=== PATIENT | male | born 2000 | race Hispanic/Latino ===

== ENCOUNTER 2020-09-26 15:09 | Emergency (ER) | payer OTHER, MEDICAID, SELFPAY ==
[2020-09-26 15:43] VITALS: BP 161/91; PULSE 74; RESP 16; TEMP 37.2; O2SAT 100; BMI 21.6
[2020-09-26 16:49] LABS: Add Manual Diff / Slide Review NO; Basophils Absolute Auto 100 /uL (0-100); Basophils Percent Auto 0.8 % (0-2); Eosinophils Absolute Auto 300 /uL (0-450); Hematocrit 49.4 % (41-53); Hemoglobin 16.1 g/dL (13.5-17.5); Lymphocytes Absolute Auto 1900 /uL (1100-4500); Lymphocytes Percent Auto 26.2 % (25-40); Mean Corpuscular HGB Conc 32.7 % (30-36); Mean Corpuscular Hemoglobin 26.6 PG (26-34); Mean Corpuscular Volume 81.4 fL (80-100); Monocytes Absolute Auto 400 /uL (0-900); Monocytes Percent Auto 5.7 % (3-14); Neutrophils Absolute Auto 4500 /uL (1500-7000); Neutrophils Percent Auto 63.3 % (50-75); Platelet Count 253 X10^3/uL (150-400); Red Blood Cell Count 6.07 X10^6/uL (4.5-5.9); Red Cell Distribution Width 14.3 % (11.6-14.8); White Blood Cell Count 7.2 X10^3/uL (4.5-11.0)
[2020-09-26 16:53] LABS: Prothrombin Time 12.1 SECONDS (10.1-12.7)
[2020-09-26 16:56] LABS: PTT Partial Thromboplastin Tim 30 SECONDS (26.4-36.2)
[2020-09-26 16:58] LABS: Alanine Aminotransferase 22 IU/L (<50); Albumin 4.9 g/dL (3.5-5.0); Albumin Globulin Ratio 1.3 (1.0-2.8); Alkaline Phosphatase 96 U/L (38-126); Aspartate Aminotransferase 30 IU/L (17-59); BUN Creatinine Ratio 17.6 (6-22); Bilirubin Total 0.4 mg/dL (0.2-1.3); Blood Urea Nitrogen 16 mg/dL (9-20); Calcium 9.5 mg/dL (8.4-10.2); Carbon Dioxide 27 mmol/L (22-32); Chloride 106 mmol/L (98-107); Estimated Glomerular Filt Rate > 60.0 mL/min (>60); Globulin 3.8 g/dL (1.7-4.1); Glucose 89 mg/dL (70-100); HEMOLYSIS < 15 (0-50); Lipase 107 U/L (23-300); Potassium 4.3 mmol/L (3.4-5.1); Sodium 140 mmol/L (137-145); Total Protein 8.7 g/dL (6.3-8.2)
--- NOTE | 2020-09-26 20:24 | ED_ITS ---
HPI - Abdominal Pain General Chief Complaint: Abdominal Pain Stated Complaint: stomach pains Time Seen by Provider: 09/26/20 20:24 Source: patient and family Mode of arrival: Ambulatory Limitations: no limitations History of Present Illness HPI narrative: The patient has right lower quadrant pain, he has had pain for 1 week. Pain is increased tonight. He has no fever. His appetite is normal. There is some increase of pain with motion, no pain with straight leg raise now. He has had no nausea, vomiting or diarrhea. Has no genital pain. He denies dysuria. The pain does radiate to his right back. He has had no recent injuries. Related Data Home Medications Medication Instructions Recorded Confirmed No Known Home Medications 09/26/20 09/26/20 Allergies Allergy/AdvReac Type Severity Reaction Status Date / Time No Known Drug Allergies Allergy Verified 09/26/20 15:48 Review of Systems Review of Systems ROS Unobtainable: All systems reviewed & are unremarkable except as noted in HPI and below Constitutional Constitutional: Denies chills, Denies fever(s), Denies headache(s), Denies lethargy and Denies weakness ENT Ears, Nose, Mouth, and Throat: Denies dizziness, Denies headache(s) and Denies sore throat Cardiovascular Cardiovascular: Denies chest pain, Denies chest pain with activity, Denies rapid heart rate and Denies dyspnea Respiratory Respiratory: Denies cough, Denies dyspnea and Denies wheezing Gastrointestinal Gastrointestinal: Reports as per HPI Genitourinary Comments: No genital pain. No dysuria. Musculoskeletal Musculoskeletal: Denies arthralgias and Denies back pain Integumentary/Breasts Skin/Breast: Denies rash and Denies wounds Neurologic Neurologic: Denies dizziness, Denies headache(s) and Denies weakness Allergic/Immunologic Allergic/Immunologic: Denies wheezing Patient History Medical History (Updated 09/27/20 @ 00:26 by Jung Johnson MD) Healthy adult (Acute) Surgical History (Updated 09/27/20 @ 00:23 by Jung Johnson MD) No significant past surgical history (Acute) Social History Smoking Status: Never smoker Smoking Status: Never smoker alcohol intake frequency: holidays/special occasions only Substance Use Type: does not use Exam Initial Vital Signs Initial Vital Signs: Vital Signs Temperature 99 F 09/26/20 15:43 Pulse Rate 74 09/26/20 15:43 Respiratory Rate 16 09/26/20 15:43 Blood Pressure 161/91 H 09/26/20 15:43 Pulse Oximetry 100 09/26/20 15:43 Const General: cooperative and well developed Nutritional Appearance: well nourished [facility] Head: normocephalic and atraumatic Throat: posterior oropharynx normal Chest Chest: normal inspection of the chest Resp Effort & Inspection: normal respiratory effort and able to speak in complete sentences Auscultation: clear to auscultation bilaterally Cardio Rate: regular rate Rhythm: regular rhythm Heart Sounds: S1 normal, S2 normal, no click, no gallops, no murmurs and no rubs Pulses: normal peripheral pulses GI Other: Right lower quadrant tenderness with guarding but no rebound. Normal bowel sounds. No distension. No masses. Negative heel tap. Skin General: no rashes or lesions noted, No jaundice and No petechiae Neuro General: patient alert, patient oriented x3, gait normal and no focal motor deficits Speech: speech normal Course Course Course Narrative: The patient's pain is resolved after Toradol. There is no CT evidence of appendicitis, the CT is normal Orders Ordered: ED Orders 09/26/20 16:30 Complete Blood Count AUTO DIFF Stat Comprehensive Metabolic Panel Stat Lipase Stat Partial Thromboplastin Time Stat Prothrombin Time INR Stat 09/26/20 21:02 CT abdomen pelvis w con Stat Discontinued Medications Sodium Chloride (Normal Saline 0.9%) 1,000 mls @ 1,000 mls/hr IV BOLUS ONE Stop: 09/26/20 22:01 Last Infusion: 09/26/20 22:57 Dose: 0 mls/hr Documented by: Admin: 09/26/20 21:22 Dose: 1,000 mls/hr Documented by: LAVERNE Ketorolac Tromethamine (Toradol) 30 mg IV NOW ONE Stop: 09/26/20 21:03 Last Admin: 09/26/20 21:22 Dose: 30 mg Documented by: LAVERNE Vital Signs Vital signs: Vital Signs - 8 hr 09/26/20 22:49 09/26/20 22:50 09/27/20 00:08 Pulse Rate 58 L 55 L 58 L Respiratory Rate Blood Pressure 122/66 Pulse Oximetry 100 100 100 09/27/20 00:09 Pulse Rate 59 L Respiratory Rate 16 Blood Pressure 118/79 Pulse Oximetry 100 MDM - Abdominal Pain Lab Data Result diagrams: 09/26/20 16:30 09/26/20 16:30 Labs: Lab Results 09/26/20 09/26/20 09/26/20 Range/Units 16:30 16:30 16:30 WBC 7.2 (4.5-11.0) X10^3/uL RBC 6.07 H (4.5-5.9) X10^6/uL Hgb 16.1 (13.5-17.5) g/dL Hct 49.4 (41-53) % MCV 81.4 (80-100) fL MCH 26.6 (26-34) PG MCHC 32.7 (30-36) % RDW 14.3 (11.6-14.8) % Plt Count 253 (150-400) X10^3/uL Neut % (Auto) 63.3 (50-75) % Lymph % (Auto) 26.2 (25-40) % [place] % (Auto) 5.7 (3-14) % Eos % (Auto) 4.0 (2-4) % Baso % (Auto) 0.8 (0-2) % Neut # (Auto) 4500 (2055-2232) /uL Lymph # (Auto) 1900 (1790-0272) /uL [place] # (Auto) 400 (0-900) /uL Eos # (Auto) 300 (0-450) /uL Baso # (Auto) 100 (0-100) /uL PT 12.1 (10.1-12.7) SECONDS INR 1.0 (0.9-1.3) APTT 30 (26.4-36.2) SECONDS Sodium 140 (137-145) mmol/L Potassium 4.3 (3.4-5.1) mmol/L Chloride 106 (98-107) mmol/L Carbon Dioxide 27 (22-32) mmol/L BUN 16 (9-20) mg/dL Creatinine 0.91 (0.66-1.25) mg/dL Estimated GFR > 60.0 (>60) mL/min BUN/Creatinine Ratio 17.6 (6-22) Glucose 89 (70-100) mg/dL Calcium 9.5 (8.4-10.2) mg/dL Total Bilirubin 0.4 (0.2-1.3) mg/dL AST 30 (17-59) IU/L ALT 22 (<50) IU/L Alkaline Phosphatase 96 (38-126) U/L Total Protein 8.7 H (6.3-8.2) g/dL Albumin 4.9 (3.5-5.0) g/dL Globulin 3.8 (1.7-4.1) g/dL Albumin/Globulin Ratio 1.3 (1.0-2.8) Lipase 107 (23-300) U/L Point of care testing: Urine Dip Bedside Urine Glucose Negative Bedside Urine Bilirubin - Negative Bedside Urine Ketone - Negative Urine Specific [place] 1.015 Bedside Urine Occult Blood - Negative Bedside Urine pH 8.0 Bedside Urine Protein - Negative Bedside Urine Urobilinogen - Negative Bedside Urine Nitrite - Negative Bedside Urine Leukocytes - Negative Esterase Imaging Data CT scan - abdomen/pelvis: Radiologist's Impression: [place] [address] CT Scan Report Signed Patient: Sukumar Sevilla [facility]#: [id number] : 2000Acct:[id number] Age/Sex: te of Service: 09/26/20 Loc: ED Accession Number: [id number] Procedure: CT abdomen pelvis w con Ordering Provider: Jung Johnson MD PROCEDURE: CT ABDOMEN PELVIS W CON INDICATIONS: RLQ pain TECHNIQUE: After the administration of intravenous contrast, 5 mm thick sections acquired from the diaphragm to the symphysis. 5 mm coronal and sagittal reformats were acquired. For radiation dose reduction, the following was used: automated exposure control, adjustment of mA and/or kV according to patient size. COMPARISON: None. FINDINGS: Image quality: Excellent. ABDOMEN: Lung bases: Lung bases are clear. Heart size is normal. Solid organs: Liver is normal in size and enhancement. Gallbladder is unremarkable . Biliary system is non dilated. Pancreas enhances normally. Spleen is normal in size and enhancement. No adrenal nodules. Kidneys demonstrate normal size and enhancement, without hydronephrosis. Peritoneum and bowel: Bowel loops demonstrate normal wall thickness and caliber. The appendix is thin walled and gas filled. No free fluid or air. Nodes and vessels: No retroperitoneal or mesenteric adenopathy by size criteria. Aorta and inferior vena cava are normal in size. Miscellaneous: No ventral hernias. PELVIS: Genitourinary: Bladder wall thickness is normal. Miscellaneous: No inguinal hernias or adenopathy. Bones: No suspicious bony lesions. No vertebral body compression fractures. IMPRESSION: 1. No acute intra-abdominal findings. Normal appendix. Dictated by: Claudine Nick M.D. on 09/26/2020 at 21:50 Approved by: Claudine Nick M.D. on 09/26/2020 at 21:52 Discharge Plan Departure Patient Disposition: Home Clinical Impression: Abdominal pain, acute, right lower quadrant Instructions: DI for Abdominal Pain-Adult Activity Restrictions/Additional Instructions: Advil 2 tablets every 6 hours as needed for pain. Drink plenty of fluids, stay well hydrated. I think the pain is from a muscle strain. If you have increasing pain or fever return to the ER. Prescriptions: No Action No Known Home Medications RF: 0
--- NOTE | 2020-09-26 21:02 | DI.CT.S_ITS ---
PROCEDURE: CT ABDOMEN PELVIS W CON INDICATIONS: RLQ pain TECHNIQUE: After the administration of intravenous contrast, 5 mm thick sections acquired from the diaphragm to the symphysis. 5 mm coronal and sagittal reformats were acquired. For radiation dose reduction, the following was used: automated exposure control, adjustment of mA and/or kV according to patient size. COMPARISON: None. FINDINGS: Image quality: Excellent. ABDOMEN: Lung bases: Lung bases are clear. Heart size is normal. Solid organs: Liver is normal in size and enhancement. Gallbladder is unremarkable . Biliary system is non dilated. Pancreas enhances normally. Spleen is normal in size and enhancement. No adrenal nodules. Kidneys demonstrate normal size and enhancement, without hydronephrosis. Peritoneum and bowel: Bowel loops demonstrate normal wall thickness and caliber. The appendix is thin walled and gas filled. No free fluid or air. Nodes and vessels: No retroperitoneal or mesenteric adenopathy by size criteria. Aorta and inferior vena cava are normal in size. Miscellaneous: No ventral hernias. PELVIS: Genitourinary: Bladder wall thickness is normal. Miscellaneous: No inguinal hernias or adenopathy. Bones: No suspicious bony lesions. No vertebral body compression fractures. IMPRESSION: 1. No acute intra-abdominal findings. Normal appendix. Dictated by: Claudine Nick M.D. on 09/26/2020 at 21:50 Approved by: Claudine Nick M.D. on 09/26/2020 at 21:52
[2020-09-26] MEDS: SODIUM CHLORIDE 0.9% 1,000 ML 1000 ML IV (21:22)
[2020-09-26] MEDS: KETOROLAC 60 MG/2 ML VIAL 30 MG IV (21:22)
[2020-09-26 22:49] VITALS: PULSE 58; O2SAT 100
[2020-09-26 22:50] VITALS: BP 122/66; PULSE 55; O2SAT 100
[2020-09-27 00:08] VITALS: PULSE 58; O2SAT 100
[2020-09-27 00:09] VITALS: BP 118/79; PULSE 59; RESP 16; O2SAT 100
== END 2020-09-27 00:30 | disposition home or self-care (01) ==
PROVIDERS: Emergency Medicine; Emergency Provider Emergency Medicine
DX: R10.31 Right lower quadrant pain (principal)
CPT/HCPCS: 36415; 74177; 80053; 81003; 83690; 85025; 85610; 85730; 96361; 96374; 99284; J1885; Q9967

== ENCOUNTER → 2021-02-20 10:26 | Outpatient (CLI) | payer OTHER, MEDICAID, SELFPAY ==
[2021-02-20] MEDS: COVID-19 VACC #1, MRNA(MOD) 100 MCG/0.5 ML VIAL IM (10:35)
== END ==
PROVIDERS: Visit Provider Internal Medicine
DX: Z23 Encounter for immunization (principal)
CPT/HCPCS: 0011A; 91301

== ENCOUNTER → 2021-03-20 11:09 | Outpatient (CLI) | payer OTHER, MEDICAID, SELFPAY ==
[2021-03-20] MEDS: COVID-19 VACC #2, MRNA(MOD) 100 MCG/0.5 ML VIAL IM (11:16)
== END ==
PROVIDERS: Visit Provider Internal Medicine
DX: Z23 Encounter for immunization (principal)
CPT/HCPCS: 0012A; 91301

== ENCOUNTER 2021-12-24 01:01 | Observation (INO) | payer OTHER, MEDICAID, SELFPAY ==
[2021-12-24] VITALS (14 sets, daily range): BP systolic 100–168; BP diastolic 49–95; PULSE 75–98; RESP 10–18; TEMP 36.4–38; O2SAT 96–100; BMI 23.3
--- NOTE | 2021-12-24 | PATH_ITS ---
[facility] Accession Number: [id number] . 01 Material submitted: . appendix - APPENDIX . 02 Diagnosis: Appendix, Appendectomy: Acute suppurative appendicitis with serositis. Negative for dysplasia and malignancy. V 12/27/2021 1200 Local . 02 Electronically signed: . Lotus Quiroga MD, Pathologist NPI- [id number] . 01 Gross description: . Received in formalin, labeled with the patient's name and appendix is a 9.4 cm in length by 1.4 cm in diameter intact appendix, suture at resection margin, margin inked blue. The appendix is covered with purple-dwyer serosa with distal pale dwyer patchy exudate. Sectioning reveals diffusely hemorrhagic red-brown mucosa, no fecalith present, intact tip. [employer] sections submitted. . Summary of Sections: A1. Appendix resection margin, cross sections, and half of bisected tip, 4 pieces. ([id number]) /MRV 12/25/2021 1121 Local . 02 Pathologist provided ICD-10: K35.80 . 02 CPT . 652973 Performed at: 01 [facility] [address], [place], [place] [id number] MD Sina Haines MD Phone: [phone] Performed at: 02 [facility] [address] [place], [place] [id number] MD Lotus Quiroga MD Phone: [phone]
[2021-12-24 02:59] LABS: COVID19 -Nasal RAPID Negative (Negative)
--- NOTE | 2021-12-24 04:04 | ED.ABDPAIN ---
HPI - Abdominal Pain General Chief Complaint: Abdominal Pain Stated Complaint: right side pain/cant go to bathroom x1 day Time Seen by Provider: 12/24/21 01:07 Source: patient Mode of arrival: Ambulatory History of Present Illness HPI narrative: 21-year-old male nonsmoker with a noncontributory medical history presents with family in the chief complaint of about 36 hours of gradually worsening right lower quadrant pain. It started off as a generalized abdominal discomfort and is now settled into his right lower quadrant. He has a poor appetite and nausea, vomiting and difficulty with bowel movements. His pain is worse when he moves and improves with rest. He denies any fever but has had chills. He has been NPO since 8:00 p.m. last night. He denies any bad food, exposure to other ill persons or recent antibiotics. Related Data Previous Rx's Medication Instructions Recorded hydrocodone 5 mg-acetaminophen 325 1 tab PO TID PRN #10 tab 12/24/21 mg tablet Allergies Allergy/AdvReac Type Severity Reaction Status Date / Time No Known Drug Allergies Allergy Verified 09/26/20 15:48 Review of Systems Review of Systems Narrative: GENERAL: See HPI HEENT: Denies sinus pain, ear pain, sore throat, difficulty swallowing, dizziness. RESPIRATORY: Denies dyspnea, cough, wheezing, hemoptysis, sputum. CARDIOVASCULAR: Denies chest pain, palpitations, orthopnea, edema, GASTROINTESTINAL: See HPI : Denies dysuria, frequency, incontinence, hematuria, urinary retention. MUSCULOSKELETAL: denies weakness, joint pain, or bony pain SKIN: Denies rash, skin lesions, or other NEUROLOGIC: Denies weakness, headache, numbness, change in speech, confusion, seizures, incoordination. PSYCHIATRIC: No concerning psychosocial issues. 12 point review of systems is negative except for those stated above Patient History Medical History Healthy adult Surgical History No significant past surgical history Social History household members: family Smoking Status: Never smoker Smoking Status: Never smoker alcohol intake frequency: holidays/special occasions only Substance Use Type: does not use Exam Narrative Exam Narrative: GENERAL: [21 year old patient appears stated age. Well-developed patient, in mild distress. HEAD: Atraumatic. Normocephalic. EYES: Pupils equal round and reactive. Extraocular motions intact. No scleral icterus. No injection or drainage. ENT: Nose without bleeding, purulent drainage. Throat without erythema, tonsillar hypertrophy or exudate. Airway patent. NECK: Trachea midline. Non tender CARDIOVASCULAR: Regular rate and rhythm without murmurs, gallops, or rubs. RESPIRATORY: Clear to auscultation. Breath sounds equal bilaterally. No wheezes, rales, or rhonchi. GASTROINTESTINAL: Abdomen soft, tender in the right lower quadrant with localized peritonitis nondistended. EXTREMITIES: No edema or joint tenderness. BACK: Nontender without deformity or crepitance. No flank tenderness. NEURO: AOx3. SKIN: No rash or erythema of visible areas Initial Vital Signs Initial Vital Signs: Vital Signs Temperature 98 F 12/24/21 01:18 Pulse Rate 81 12/24/21 01:18 Respiratory Rate 15 12/24/21 01:18 Blood Pressure 168/93 H 12/24/21 01:18 Pulse Oximetry 100 12/24/21 01:18 Course Orders Ordered: Acetaminophen (Acetaminophen 325 Mg Tablet) 650 mg PO Q6HR PRN PRN Reason: Fever/Mild Pain (1-3) Hydrocodone Bitart/Acetaminophen (Hydrocodone/Acet 5/325 Tablet) 1 tab PO Q4HR PRN PRN Reason: Pain, Moderate (4-6) Hydromorphone HCl (Hydromorphone 0.5 Mg Inj) 0.5 mg IV Q6H PRN PRN Reason: Pain, Moderate (4-6) Lactated Ringer's (Lactated Ringers) 1,000 mls @ 42 mls/hr IV NOW ONE Stop: 12/25/21 10:14 Last Infusion: 12/24/21 12:01 Dose: 0 mls/hr Documented by: Admin: 12/24/21 10:27 Dose: 42 mls/hr Documented by: KRISTINA Ibuprofen (Ibuprofen 600 Mg Tablet) 600 mg PO Q6HR PRN PRN Reason: Fever/Mild Pain (1-3) Naloxone HCl (Naloxone 0.4 Mg/Ml Vial) 0.2 mg IV Q2MIN PRN PRN Reason: Opiate Reversal Ondansetron HCl (Ondansetron 4 Mg/2 Ml Inj) 4 mg IV Q8HR PRN PRN Reason: Nausea And Vomiting Discontinued Medications Acetaminophen (Acetaminophen 325 Mg Tablet) 650 mg PO PACUNOW PRN PRN Reason: Pain, Mild (1-3) Last Admin: 12/24/21 12:05 Dose: 650 mg Documented by: PRATIMA Bupivacaine HCl 30 ml/ (Epinephrine HCl 0.15 mg) 0 ml INJ NOW ONE Stop: 12/24/21 11:28 Last Admin: 12/24/21 11:27 Dose: 12.5 ml Documented by: FELIX Fentanyl (Fentanyl 100 Mcg/2 Ml Inj) 0 mcg IV Q5M PRN PRN Reason: Pain, Moderate (4-6) Hydromorphone HCl (Hydromorphone 0.5 Mg Inj) 0.5 mg IV NOW ONE Stop: 12/24/21 04:21 Last Admin: 12/24/21 05:03 Dose: 0.5 mg Documented by: ISHA Hydromorphone HCl (Hydromorphone 0.5 Mg Inj) 0.5 mg IV NOW ONE Stop: 12/24/21 05:44 Last Admin: 12/24/21 05:49 Dose: 0.5 mg Documented by: MANE Hydromorphone HCl (Hydromorphone 1 Mg Inj) 1 mg IV Q1H PRN PRN Reason: Pain, Severe (7-10) Sodium Chloride (Normal Saline 0.9%) 1,000 mls @ 1,000 mls/hr IV BOLUS ONE Stop: 12/24/21 05:19 Last Admin: 12/24/21 05:03 Dose: 1,000 mls/hr Documented by: ISHA Piperacillin Sod/Tazobactam (Sod 4.5 gm/ Sodium Chloride) 100 mls @ 200 mls/hr IV NOW ONE Stop: 12/24/21 05:10 Last Admin: 12/24/21 05:37 Dose: 200 mls/hr Documented by: MANE Piperacillin Sod/Tazobactam (Sod 4.5 gm/ Sodium Chloride) 100 mls @ 200 mls/hr IV NOW ONE Stop: 12/24/21 10:27 Last Admin: 12/24/21 12:39 Dose: Not Given Documented by: DEVIN Piperacillin Sod/Tazobactam (Sod 3.375 gm/ Sodium Chloride) 100 mls @ 25 mls/hr IV NOW ONE Stop: 12/24/21 11:26 Last Admin: 12/24/21 11:00 Dose: 25 mls/hr Documented by: RIANNA Influenza Virus Vaccine (Influenza Vaccine Qiv 0.5 Ml Syringe) 0.5 ml IM .ONCE ONE Stop: 12/25/21 09:01 Lidocaine HCl (Lidocaine 1% 20 Ml) 20 ml INJ NOW ONE Stop: 12/24/21 11:28 Last Admin: 12/24/21 11:27 Dose: 12.5 ml Documented by: FELIX Ondansetron HCl (Ondansetron 4 Mg/2 Ml Inj) 4 mg IV NOW ONE Stop: 12/24/21 04:21 Last Admin: 12/24/21 05:03 Dose: 4 mg Documented by: ISHA Ondansetron HCl (Ondansetron 4 Mg/2 Ml Inj) 4 mg IV NOW PRN PRN Reason: Nausea And Vomiting Oxycodone HCl (Oxycodone Ir 5 Mg Tablet) 5 mg PO PACUNOW PRN PRN Reason: Mild or moderate pain Last Admin: 12/24/21 12:05 Dose: 5 mg Documented by: PRATIMA Consultations Consultation #1: Discussed with on-call General surgery whom agree with admission. Vital Signs Vital signs: Vital Signs - 8 hr 12/24/21 01:18 12/24/21 04:31 12/24/21 04:39 Temperature 98 F 100.2 F H Pulse Rate 81 94 H Respiratory Rate 15 Blood Pressure 168/93 H 128/65 Pulse Oximetry 100 100 MDM - Abdominal Pain Lab Data Result diagrams: 12/24/21 04:30 12/24/21 04:30 Labs: Lab Results 12/24/21 12/24/21 12/24/21 Range/Units 01:25 04:30 04:30 WBC 15.3 H (4.5-11.0) X10^3/uL RBC 5.77 (4.5-5.9) X10^6/uL Hgb 15.4 (13.5-17.5) g/dL Hct 46.0 (41-53) % MCV 79.8 L (80-100) fL MCH 26.6 (26-34) PG MCHC 33.4 (30-36) % RDW 14.4 (11.6-14.8) % Plt Count 259 (150-400) X10^3/uL Neut % (Auto) 90.7 H (50-75) % Lymph % (Auto) 4.1 L (25-40) % [place] % (Auto) 4.9 (3-14) % Eos % (Auto) 0.2 L (2-4) % Baso % (Auto) 0.1 (0-2) % Neut # (Auto) 40978 H (3987-7169) /uL Lymph # (Auto) 600 L (9127-0592) /uL [place] # (Auto) 800 (0-900) /uL Eos # (Auto) 0 (0-450) /uL Baso # (Auto) 0 (0-100) /uL Sodium 138 (137-145) mmol/L Potassium 3.8 (3.4-5.1) mmol/L Chloride 107 (98-107) mmol/L Carbon Dioxide 26 (22-32) mmol/L BUN 14 (9-20) mg/dL Creatinine 0.82 (0.66-1.25) mg/dL Estimated GFR > 60.0 (>60) mL/min BUN/Creatinine Ratio 17.1 (6-22) Glucose 114 H (70-100) mg/dL Calcium 9.0 (8.4-10.2) mg/dL Total Bilirubin 0.6 (0.2-1.3) mg/dL AST 36 (17-59) IU/L ALT 29 (<50) IU/L Alkaline Phosphatase 84 (38-126) U/L Total Protein 7.9 (6.3-8.2) g/dL Albumin 4.4 (3.5-5.0) g/dL Globulin 3.5 (1.7-4.1) g/dL Albumin/Globulin Ratio 1.3 (1.0-2.8) Lipase 76 (23-300) U/L SARS-CoV-2 (PCR) Negative (Negative) Imaging Data CT scan - abdomen/pelvis: Radiologist's Impression: Appendicitis without evidence of perforation or abscess. No appendicolith. Discharge Plan Departure Patient Disposition: Admitted As Inpatient Clinical Impression: Acute appendicitis Qualifiers: Acute appendicitis type: with localized peritonitis Appendicitis gangrene presence: without gangrene Appendicitis perforation presence: without perforation Appendicitis abscess presence: without abscess Qualified Code(s): K35.30 - Acute appendicitis with localized peritonitis, without perforation or gangrene Admit Date/Time: 12/24/21 05:39 Admit Provider: Rolan Weathers
--- NOTE | 2021-12-24 04:21 | DI.CT.S_ITS ---
PROCEDURE: CT ABDOMEN PELVIS W CON INDICATIONS: severe right lower quadrant pain, Nausea, vomiting TECHNIQUE: After the administration of intravenous contrast, axial sections acquired from the lung bases to the pubic symphysis. Coronal and sagittal reformats were performed. For radiation dose reduction, the following was used: automated exposure control, adjustment of mA and/or kV according to patient size. COMPARISON: [facility], CT, CT ABDOMEN PELVIS W CON, 09/26/2020, 21:22. FINDINGS: Image quality: Excellent. Lung bases: Unremarkable. Heart: No significant findings. ABDOMEN: Liver: Unremarkable. Gallbladder: Unremarkable. Biliary ducts: Unremarkable. Pancreas: Unremarkable. Spleen: Unremarkable. Adrenal Glands: Unremarkable. Kidneys and Ureters: Unremarkable. Stomach and Bowel: Appendix is distended measuring 9 mm in diameter. There is mild appendiceal wall thickening and periappendiceal fat stranding, consistent with acute appendicitis. There is no appendiceal abscess. No perforation. Peritoneum: No abnormal intraperitoneal fluid. No free air. Ventral Wall: No hernias. Abdominal Nodes: No retroperitoneal or mesenteric adenopathy by size criteria. Vessels: Aorta and inferior vena cava are normal in size. PELVIS: Pelvic Organs: Unremarkable. Bladder: Unremarkable. Pelvic Nodes: No enlarged lymph nodes. Miscellaneous: No hernias are seen. Bones: Unremarkable. IMPRESSION: Acute appendicitis. No perfusion or abscess. No significant discrepancy with the body painter radiology preliminary report. Dictated by: Hemalatha Acosta M.D. on 12/24/2021 at 7:58 Approved by: Hemalatha Acosta M.D. on 12/24/2021 at 8:01
[2021-12-24 04:42] LABS: Add Manual Diff / Slide Review NO; Basophils Absolute Auto 0 /uL (0-100); Basophils Percent Auto 0.1 % (0-2); Eosinophils Absolute Auto 0 /uL (0-450); Eosinophils Percent Auto 0.2 % (2-4); Hemoglobin 15.4 g/dL (13.5-17.5); Lymphocytes Absolute Auto 600 /uL (1100-4500); Lymphocytes Percent Auto 4.1 % (25-40); Mean Corpuscular HGB Conc 33.4 % (30-36); Mean Corpuscular Hemoglobin 26.6 PG (26-34); Mean Corpuscular Volume 79.8 fL (80-100); Monocytes Absolute Auto 800 /uL (0-900); Monocytes Percent Auto 4.9 % (3-14); Neutrophils Absolute Auto 13900 /uL (1500-7000); Neutrophils Percent Auto 90.7 % (50-75); Platelet Count 259 X10^3/uL (150-400); Red Blood Cell Count 5.77 X10^6/uL (4.5-5.9); Red Cell Distribution Width 14.4 % (11.6-14.8); White Blood Cell Count 15.3 X10^3/uL (4.5-11.0)
[2021-12-24 04:47] LABS: Chloride 107 mmol/L (98-107); Potassium 3.8 mmol/L (3.4-5.1); Sodium 138 mmol/L (137-145)
[2021-12-24 04:48] LABS: Alanine Aminotransferase 29 IU/L (<50); Albumin 4.4 g/dL (3.5-5.0); Albumin Globulin Ratio 1.3 (1.0-2.8); Alkaline Phosphatase 84 U/L (38-126); Aspartate Aminotransferase 36 IU/L (17-59); BUN Creatinine Ratio 17.1 (6-22); Bilirubin Total 0.6 mg/dL (0.2-1.3); Blood Urea Nitrogen 14 mg/dL (9-20); Carbon Dioxide 26 mmol/L (22-32); Estimated Glomerular Filt Rate > 60.0 mL/min (>60); Globulin 3.5 g/dL (1.7-4.1); Glucose 114 mg/dL (70-100); HEMOLYSIS 17 (0-50); Lipase 76 U/L (23-300); Total Protein 7.9 g/dL (6.3-8.2)
[2021-12-24] MEDS: SODIUM CHLORIDE 0.9% 1,000 ML 1000 ML IV (05:03)
[2021-12-24] MEDS: ONDANSETRON 4 MG/2 ML INJ IV (05:03)
[2021-12-24] MEDS: HYDROMORPHONE 0.5 MG INJ IV ×2 (05:03→05:49)
[2021-12-24] MEDS: PIPERACILLIN/TAZO 4.5 GM in SODIUM CHLORIDE 0.9% 100 ML 200 ML IV (05:37)
--- NOTE | 2021-12-24 10:26 | P.HP_ITS ---
History of Present Illness History of Present Illness Date Patient Seen: 12/24/21 Time Patient Seen: 10:26 Chief complaint: right side pain/cant go to bathroom x1 day Narrative: Sukumar is a 21-year-old man who developed right lower quadrant abdominal pain yesterday morning he has also had some nausea and vomiting. He came into the ER last night and a CT scan showed acute appendicitis without evidence of perforation. He has never had abdominal surgery in the past. He has had some sort of Neurosurgery for malformation. He has no other medical problems. Takes no medications. Patient History Medical History Healthy adult Surgical History No significant past surgical history Family & Social History Social History: household members family Prior Living Arrangements House Safety & Behavioral: Feels Safe in Current Yes Environment Been Physically Hurt or No Threatened By a Person Suicidal Ideation Description None Suicide Plan Description No Plan Tobacco & Substance use: Smoking Status Never smoker alcohol intake frequency holiday/special occasion Substance Use Type does not use Meds Home Medications and Allergies Home Medications Medication Instructions Recorded Confirmed Type No Known Home Medications 09/26/20 09/26/20 History Allergies Allergy/AdvReac Type Severity Reaction Status Date / Time No Known Drug Allergies Allergy Verified 09/26/20 15:48 Exam Vital Signs (past 8 hours): - 12/24/21 04:31 12/24/21 04:39 12/24/21 06:05 Temperature 100.2 F H 100.4 F H Pulse Rate 94 H 86 Respiratory Rate 16 Blood Pressure 128/65 118/65 Pulse Oximetry 100 99 12/24/21 09:30 12/24/21 10:13 Temperature 100.2 F H 100.2 F H Pulse Rate 90 96 H Respiratory Rate 18 18 Blood Pressure 131/70 117/69 Pulse Oximetry 100 100 Oxygen Delivery Method Room Air Oxygen Flow Rate 0 Const General: healthy appearing Resp Effort & Inspection: normal respiratory effort GI Other: Tender to palpation in the right lower quadrant Objective Labs Result Diagrams: 12/24/21 04:30 12/24/21 04:30 Labs: Laboratory Results - last 24 hr 12/24/21 12/24/21 12/24/21 01:25 04:30 04:30 WBC 15.3 H RBC 5.77 Hgb 15.4 Hct 46.0 MCV 79.8 L MCH 26.6 MCHC 33.4 RDW 14.4 Plt Count 259 Neut % (Auto) 90.7 H Lymph % (Auto) 4.1 L [place] % (Auto) 4.9 Eos % (Auto) 0.2 L Baso % (Auto) 0.1 Neut # (Auto) 23785 H Lymph # (Auto) 600 L [place] # (Auto) 800 Eos # (Auto) 0 Baso # (Auto) 0 Sodium 138 Potassium 3.8 Chloride 107 Carbon Dioxide 26 BUN 14 Creatinine 0.82 Estimated GFR > 60.0 BUN/Creatinine Ratio 17.1 Glucose 114 H Calcium 9.0 Total Bilirubin 0.6 AST 36 ALT 29 Alkaline Phosphatase 84 Total Protein 7.9 Albumin 4.4 Globulin 3.5 Albumin/Globulin Ratio 1.3 Lipase 76 SARS-CoV-2 (PCR) Negative Assessment & Plan Assessment and plan (1) Acute appendicitis: Qualifiers: Acute appendicitis type: with localized peritonitis Appendicitis gangrene presence: without gangrene Appendicitis perforation presence: without perforation Appendicitis abscess presence: without abscess Qualified Code(s): K35.30 - Acute appendicitis with localized peritonitis, without perforation or gangrene Status: Acute Plan 21-year-old man with acute, uncomplicated appendicitis. Discussed surgery verses IV antibiotic therapy. He would like to proceed with surgery. We discussed the risks and benefits of laparoscopic appendectomy. He has had Zosyn but will give him another dose prior to surgery. COVID-19 COVID-19 status: Negative Result date/Date tested (Pos, Neg/Pending): 12/23/21 Time Spent With Patient Critical Care time: I spent a total of [] minutes of critical care time on this patient's care tod ay; this time is exclusive of procedural time. Quality VTE Deep Vein Thrombosis/Pulmonary Embolism Present on Admission: No
[2021-12-24] MEDS: LACTATED RINGERS 1,000 ML 42 ML IV (10:27)
--- NOTE | 2021-12-24 10:28 | SUR.HOLD ---
Niya an game moderator used to admit the pt to [facility], as well as used by Dr. Weathers and Dr. Thomas.
[2021-12-24] MEDS: PIPERACILLIN/TAZO 3.375 GM in SODIUM CHLORIDE 0.9% 100 ML 25 ML IV (11:00)
--- NOTE | 2021-12-24 11:19 | SUR.OPER ---
Supine on padded OR bed, head on pillow, safety belt at thigh, left arm padded and tucked at side. Right arm secured on padded arm board <90 degrees abduction. Legs uncrossed. Padded footboard in place. Tape over blanket to secure lower legs.
[2021-12-24] MEDS: BUPIVACAINE 0.5% (PF) 30 ML, EPINEPHrine 0.15 MG INJ (11:27)
[2021-12-24] MEDS: LIDOCAINE 1% 20 ML INJ (11:27)
[2021-12-24] MEDS: ACETAMINOPHEN 325 MG TABLET 650 MG PO (12:05)
[2021-12-24] MEDS: OXYCODONE IR 5 MG TABLET PO (12:05)
--- NOTE | 2021-12-24 12:09 | SUR.PHASEI ---
administered 650mg tylenol and 5mg percolone IR for pain control
--- NOTE | 2021-12-24 12:17 | PM.OP.1 ---
Operative Date/Time/Diagnoses Date of procedure: 12/24/21 Time of procedure: 12:17 Pre-op diagnosis: Acute uncomplicated appendicitis Post-op diagnosis: same Procedure & Clinicians Procedure: Laparoscopic appendectomy Same procedure as scheduled: Yes Indications: Acute uncomplicated appendicitis Surgeon: Rolan Weathers Anesthesia Type: General Operative Notes Estimated Blood Loss (mL): 10 Procedure in detail: Procedure in detail: The patient was on IV antibiotics. The patient was brought to the operating room, placed on the table in the supine position and general endotracheal anesthesia was induced. A time-out was performed. The abdomen was prepped and draped in the usual fashion. After injection of local anesthetic a 1 cm infraumbilical incision was created with a 15 blade scalpel. The umbilical stalk was grasped with a Stan clamp to elevate the abdominal wall. The infraumbilical midline fascia was cleared over 1 cm and the fascia was scored with cautery. The peritoneum was pierced with a Peon clamp. The Justina port was placed and the abdomen was insufflated to 15 mmHg. The camera was inserted and there was no evidence of any injury from the entry. Next, 5 mm ports were placed in the suprapubic and left lower quadrant positions under direct vision. The patient was placed in Trendelenburg with the right-side elevated. The terminal ileum was swept away from the cecum and the appendix was visualized. The appendix was inflamed and distended but not perforated and there was no evidence of gangrene. The mesoappendix was divided with the LigaSure to the base. Two PDS Endoloops were placed at the base and a 3rd endoloop was placed about a cm distally and the appendix was divided sharply. The specimen was placed in a Endo-Catch bag. A small amount of fluid with suction from the base of the appendix and pelvis. The table was flattened and the terminal ileum and omentum were allowed to slide in over the appendiceal stump. Finally, the 5 mm ports were removed under direct vision. The pneumoperitoneum was released and the Justina port was removed followed by the Endo-Catch bag. Additional local was injected into the fascia and the infraumbilical incision was closed with 2 interrupted 2-0 Vicryl sutures. The skin incisions were closed with 4 Monocryl. Steri-Strips were applied followed by Band-Aids. EBL: 10 mL Specimen: Appendix Post-operative Condition: stable Disposition: PACU
--- NOTE | 2021-12-24 12:35 | SUR.PHASEI ---
Pt transported to room 209 in stable condition with plans for possible D/C if he does not experience any N/V or signs of infection
--- NOTE | 2021-12-24 15:33 | P.DS_ITS ---
History of Present Illness History of Present Illness Chief complaint: right side pain/cant go to bathroom x1 day Narrative: Skuumar is a 21-year-old man who developed right lower quadrant abdominal pain yesterday morning he has also had some nausea and vomiting. He came into the ER last night and a CT scan showed acute appendicitis without evidence of perforation. He has never had abdominal surgery in the past. He has had some sort of Neurosurgery for malformation. He has no other medical problems. Takes no medications. Discharge Providers Provider Date of admission: 12/24/21 05:39 Discharge Date: 12/24/21 Discharge provider: Rolan Weathers MD Summary Hospital Course Hospital Course: Admitted with a diagnosis of acute appendicitis. He underwent a laparoscopic appendectomy on 12/24/2021. He did not have a perforated appendicitis. He did well after surgery and was discharged home later that day. Exam Vital Signs (past 8 hours): - 12/24/21 09:30 12/24/21 10:13 12/24/21 11:49 Temperature 100.2 F H 100.2 F H 97.6 F Pulse Rate 90 96 H 75 Respiratory Rate 18 18 14 Blood Pressure 131/70 117/69 123/78 Pulse Oximetry 100 100 98 12/24/21 11:54 12/24/21 11:59 12/24/21 12:13 Temperature 99 F Pulse Rate 88 87 77 Respiratory Rate 15 10 L 12 Blood Pressure 110/54 L 111/66 102/56 L Pulse Oximetry 100 100 100 12/24/21 12:19 12/24/21 12:30 Temperature 98.8 F Pulse Rate 78 84 Respiratory Rate 16 18 Blood Pressure 102/53 L 104/95 H Pulse Oximetry 99 96 Oxygen Delivery Method Room Air Oxygen Flow Rate 0 Objective Labs Result Diagrams: 12/24/21 04:30 12/24/21 04:30 Labs: Laboratory Results - last 24 hr 12/24/21 12/24/21 12/24/21 01:25 04:30 04:30 WBC 15.3 H RBC 5.77 Hgb 15.4 Hct 46.0 MCV 79.8 L MCH 26.6 MCHC 33.4 RDW 14.4 Plt Count 259 Neut % (Auto) 90.7 H Lymph % (Auto) 4.1 L [place] % (Auto) 4.9 Eos % (Auto) 0.2 L Baso % (Auto) 0.1 Neut # (Auto) 14897 H Lymph # (Auto) 600 L [place] # (Auto) 800 Eos # (Auto) 0 Baso # (Auto) 0 Sodium 138 Potassium 3.8 Chloride 107 Carbon Dioxide 26 BUN 14 Creatinine 0.82 Estimated GFR > 60.0 BUN/Creatinine Ratio 17.1 Glucose 114 H Calcium 9.0 Total Bilirubin 0.6 AST 36 ALT 29 Alkaline Phosphatase 84 Total Protein 7.9 Albumin 4.4 Globulin 3.5 Albumin/Globulin Ratio 1.3 Lipase 76 SARS-CoV-2 (PCR) Negative [facility] Medical History Healthy adult Surgical History No significant past surgical history Social History household members: family Smoking Status: Never smoker Discharge Plan Discharge Plan Patient Disposition: Home Provider Discharge Comment: No lifting greater than 20 lb for 2 weeks. Okay to remove the outer dressing and shower after 24 hours. Leave the Steri-Strips on until they start to peel off in 1-2 weeks. Discharge orders & Medications Prescriptions: New hydrocodone-acetaminophen 5-325 mg tablet 1 tab PO TID PRN (Reason: pain) Qty: 10 0RF Discharge Data Attending Provider: Rolan Weathers VTE Deep Vein Thrombosis/Pulmonary Embolism Present on Admission: No
--- NOTE | 2021-12-24 17:29 | PC.NURSE ---
Discharge Note Patient A&O, VSS, RA. No complaints of pain/discomfort. Discharge packet reviewed with patient, all questions/concerns addressed. 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 PIV discontinued. All belongings packed and given to patient along with discharge packet. Patient taken down via wheelchair to POV.
--- NOTE | 2022-01-08 22:48 | PC.NURSE ---
Late entry: 12/24/21- Pt received 1000ml of normal saline completed at 0605.
== END 2021-12-24 17:15 | disposition home or self-care (01) ==
LOC: ED 04:04 → AC 05:42
PROVIDERS: Admitting Provider Surgery; Emergency Provider Emergency Medicine; Visit Provider Surgery
PROC: 0DTJ4ZZ Resection of Appendix, Percutaneous Endoscopic Approach (ICD-10-PCS; CPT 44970; principal; 2021-12-24 10:30)
DX: K35.30 Acute appendicitis with localized peritonitis, without perforation or gangrene (principal)
CPT/HCPCS: 44970; 36415; 74177; 80053; 83690; 85025; 87635; 96374; 96375; 96376; 99220; 99284; C9803; G0378; J0171; J1100; J1170; J2405; J2543; J3010; Q9967